=== PATIENT | male | born 1970 | race Caucasian/White ===

== ENCOUNTER 2017-02-04 22:49 | Emergency (ER) | payer BC ==
[~2017-02-04] VITALS: Ht 180.3 cm; Wt 77.1 kg
[2017-02-04] MEDS ORDERED: MONTELUKAST SOD 10 MG TABLET (23:04)
[2017-02-04] MEDS ORDERED: DICLOFENAC SOD (23:04)
[2017-02-04] MEDS ORDERED: PROAIR HFA ORAL INH (200 PFS) (23:04)
[2017-02-04] MEDS ORDERED: LORAZEPAM 0.5 MG (23:04)
[2017-02-04] MEDS ORDERED: FINASTERIDE 1 MG (23:04)
[2017-02-04] MEDS: ONDANSETRON 4 MG/2 ML VIAL IV ONE (23:19)
[2017-02-04] MEDS: MORPHINE SULFATE 2 MG/1 ML DISP.SYRIN IV ONE (23:19)
[2017-02-04] MEDS ORDERED: ONDANSETRON 4 MG/2 ML VIAL ONE (23:25)
[2017-02-04] MEDS ORDERED: MORPHINE SULFATE 10 MG/1 ML DISP.SYRIN ONE (23:26)
[2017-02-04 23:32] LABS: BASOPHILS # (AUTO) 0.1 K/uL (0.0-8.0); BASOPHILS % (AUTO) 0.8 % (0.0-2.0); EOSINOPHILS # (AUTO) 0.2 K/uL (0.0-0.7); EOSINOPHILS % (AUTO) 1.9 % (0.0-7.0); HEMATOCRIT 42.9 % (40-50); HEMOGLOBIN 14.4 G/DL (14.0-18.0); LYMPHOCYTES # (AUTO) 2.5 K/UL (0.8-4.8); LYMPHOCYTES % (AUTO) 26.9 % (20.5-51.5); MEAN CORPUSCULAR HEMOGLOBIN 28.8 UUG (27.0-31.0); MEAN CORPUSCULAR HGB CONC 34 g/dL (32.0-37.0); MEAN CORPUSCULAR VOLUME 85.6 FL (82.0-92.0); MONOCYTES # (AUTO) 0.8 K/UL (0.1-1.30); MONOCYTES % (AUTO) 8.3 % (0.0-11.0); NEUTROPHILS # (AUTO) 5.7 K/UL (1.8-8.9); NEUTROPHILS % (AUTO) 62.1 % (38.5-71.5); PLATELET COUNT (AUTO) 214 K/UL (150-450); RED BLOOD CELL COUNT(AUTO) 5.01 MIL/UL (4.7-6.1); WHITE BLOOD COUNT (AUTO) 9.3 K/UL (4.0-11.2)
[2017-02-04 23:37] LABS: CREATININE 1.2 mg/dL (0.6-1.3); POTASSIUM 3.7 mmol/L (3.5-5.1)
--- NOTE | 2017-02-04 23:37 | NUR ---
PATIENT OUT OF UNIT FOR CT SCAN WITH NO DISTRESS NOTED
[2017-02-04 23:42] LABS: BILIRUBIN,DIRECT 0.3 mg/dL (0.0-0.2); BILIRUBIN,TOTAL 1.5 mg/dL (0.2-1.0); TOTAL PROTEIN, SERUM 6.5 g/dL (6.4-8.2)
--- NOTE | 2017-02-04 23:51 | NUR ---
PATIENT BACK FROM CT SCAN WITH NO DISTRESS NOTED
--- NOTE | 2017-02-05 01:18 | NUR ---
IV removed. Catheter intact and site benign. Pressure and 4x4 gauze applied to site. No bleeding noted.
--- NOTE | 2017-02-05 01:22 | NUR ---
Patient discharged to home in stable conditon WITH GIRLFRIEND TAKING PATIENT HOME. Written and verbal after care instructions given. Patient verbalizes understanding of instructions. WALKED OUT OF ER WITH NO DISTRESS NOTED
[2017-02-05 01:23] VITALS: BP 116/74
== END 2017-02-05 01:24 | disposition home or self-care (01) ==
LOC: ER 22:51
DX: S70.02XA Contusion of left hip, initial encounter (principal); J45.909 Unspecified asthma, uncomplicated; K21.9 Gastro-esophageal reflux disease without esophagitis; V80.010A Animal-rider injured by fall from or being thrown from horse in noncollision accident, initial encounter; Y93.89 Activity, other specified; Y92.89 Other specified places as the place of occurrence of the external cause; Y99.8 Other external cause status
CPT/HCPCS: 36415; 72192; 80048; 80076; 85025; 85730; 86850; 86900; 86901; 96374; 96375; 99285; A4663; J2270; J2405